=== PATIENT | female | born 1990 | race Two or more races ===

== ENCOUNTER 2018-09-28 17:41 | Emergency (ER) | payer OTHER ==
[~2018-09-28] VITALS: Ht 160 cm; Wt 54.4 kg
--- NOTE | 2018-09-28 17:45 | NUR ---
ED Nurse Note: Pt walked in the ER for chest pain on L upper chest and L arm tingling started 10 mins prior to arrival. No complaint of pain at this moment but " my hand is tingling". AOx4, VSS og. Will cont to monitor.
[2018-09-28 17:47] VITALS: BP 114/65
--- NOTE | 2018-09-28 18:02 | Emergency Room Report ---
History of Present Illness General Chief Complaint: Chest Pain Source: Patient Present Illness HPI The patient presents with episode of chest pain that began 15 minutes before coming in. It occurred both her chest and her lower back. This was initially severe. She soon felt that she couldn't breathe. She also had tingling of her left hand. She's never had pain like this before. Her doctor has seen her for chest pain in the past but told her it was due to lack of sleep. She was doing homework when this began and is under stress at this time. She denies feeling heartburn. The pain is rated 10/10, improving, more pressure. No fevers, chills, cough, sore throat, headache, rashes, joint pain, calf pain, edema. No dysuria. The patient is on her period at this time. Allergies: Coded Allergies: No Known Allergies (Unverified , 09/28/18) Patient History Past Medical History: see triage record Social History: Denies: smoking, alcohol use, drug use Social History Narrative student Last Menstrual Period: 09/26/18 Reviewed Nursing Documentation: PMH: Agreed; PSxH: Agreed Nursing Documentation-PMH Past Medical History: No Stated History Review of Systems All Other Systems: negative except mentioned in HPI Physical Exam Vital Signs Date Time Temp Pulse Resp B/P (MAP) Pulse Ox O2 Delivery O2 Flow Rate FiO2 09/28/18 17:45 97.9 80 18 117/69 95 Room Air Sp02 EP Interpretation: reviewed, abnormal - interpreted as slightly low by me General Appearance: well appearing, no apparent distress, GCS 15, thin Head: normocephalic, atraumatic Eyes: bilateral eye normal inspection, bilateral eye PERRL, bilateral eye EOMI ENT: moist mucus membranes Neck: supple Respiratory: chest non-tender, lungs clear, normal breath sounds Cardiovascular #1: regular rate, rhythm, no edema Cardiovascular #2: 2+ radial (R) Gastrointestinal: normal inspection, normal bowel sounds, non tender, no mass, non-distended Genitourinary: no CVA tenderness Musculoskeletal: back normal, gait/station normal, normal range of motion, no calf tenderness Neurologic: alert, oriented x3, grossly normal Psychiatric: anxious Skin: normal inspection, warm/dry Medical Decision Making Diagnostic Impression: Primary Impression: Chest pain Qualified Codes: R07.9 - Chest pain, unspecified Additional Impressions: UTI (urinary tract infection) Qualified Codes: N30.00 - Acute cystitis without hematuria Stress ER Course Presents with chest pain and difficulty breathing. Differential includes esophageal spasm, acute myocardial infarction, hyperventilation, reflux esophagitis, costochondritis, pulmonary embolus amongst others. Based on her exam pulmonary embolus is less likely. Evaluation will be with chest x-ray, EKG and labs. The patient retreated with Pepcid and Tylenol and reevaluated. She is placed on a court monitor. EKG without injury. CXR clear. Labs unremarkable. Pyuria with blood from menses. Patient improved with treatment and pain free. Discussed findings and need for follow up. Decision to place on antibiotics for pyuria. Patient stable for outpatient observation and treatment. Laboratory Tests Test 09/28/18 18:05 White Blood Count 6.2 K/UL (4.8-10.8) Red Blood Count 4.40 M/UL (4.20-5.40) Hemoglobin 13.4 G/DL (12.0-16.0) Hematocrit 39.7 % (37.0-47.0) Mean Corpuscular Volume 90 FL (80-99) Mean Corpuscular Hemoglobin 30.5 PG (27.0-31.0) Mean Corpuscular Hemoglobin Concent 33.8 G/DL (32.0-36.0) Red Cell Distribution Width 11.6 % (11.6-14.8) Platelet Count 205 K/UL (150-450) Mean Platelet Volume 8.2 FL (6.5-10.1) Neutrophils (%) (Auto) 64.8 % (45.0-75.0) Lymphocytes (%) (Auto) 27.2 % (20.0-45.0) Monocytes (%) (Auto) 5.9 % (1.0-10.0) Eosinophils (%) (Auto) 0.8 % (0.0-3.0) Basophils (%) (Auto) 1.3 % (0.0-2.0) Urine Color Pale yellow Urine Appearance Slightly cloudy Urine pH 5 (4.5-8.0) Urine Specific [place] 1.020 (1.005-1.035) Urine Protein Negative (NEGATIVE) Urine Glucose (UA) Negative (NEGATIVE) Urine Ketones Negative (NEGATIVE) Urine Blood 5+ (NEGATIVE) H Urine Nitrite Negative (NEGATIVE) Urine Bilirubin Negative (NEGATIVE) Urine Urobilinogen Normal MG/DL (0.0-1.0) Urine Leukocyte Esterase 1+ (NEGATIVE) H Urine RBC 20-30 /HPF (0 - 2) H Urine WBC 5-10 /HPF (0 - 2) H Urine Squamous Epithelial Cells Moderate /LPF (NONE/OCC) H Urine Bacteria Few /HPF (NONE) Urine HCG, Qualitative Negative (NEGATIVE) Sodium Level 137 MMOL/L (136-145) Potassium Level 3.4 MMOL/L (3.5-5.1) L Chloride Level 104 MMOL/L (98-107) Carbon Dioxide Level 24 MMOL/L (21-32) Anion Gap 9 mmol/L (5-15) Blood Urea Nitrogen 11 mg/dL (7-18) Creatinine 0.7 MG/DL (0.55-1.30) Estimate Glomerular Filtration Rate > 60 mL/min (>60) Glucose Level 96 MG/DL (74-106) Calcium Level 8.3 MG/DL (8.5-10.1) L Total Bilirubin 0.2 MG/DL (0.2-1.0) Aspartate Amino Transferase (AST) 21 U/L (15-37) Alanine Aminotransferase (ALT) 14 U/L (12-78) Alkaline Phosphatase 47 U/L (46-116) Total Creatine Kinase 221 U/L (26-308) Total Protein 7.0 G/DL (6.4-8.2) Albumin 3.7 G/DL (3.4-5.0) Globulin 3.3 g/dL Albumin/Globulin Ratio 1.1 (1.0-2.7) Urine Opiates Screen Negative (NEGATIVE) Urine Barbiturates Screen Negative (NEGATIVE) Phencyclidine (PCP) Screen Negative (NEGATIVE) Urine Amphetamines Screen Negative (NEGATIVE) Urine Benzodiazepines Screen Negative (NEGATIVE) Urine Cocaine Screen Negative (NEGATIVE) Urine Marijuana (THC) Screen Negative (NEGATIVE) EKG Diagnostic Results Rate: normal Rhythm: NSR ST Segments: no acute changes Rhythm Strip Diag. Results EP Interpretation: yes Rhythm: NSR, no PVC's, no ectopy Chest X-Ray Diagnostic Results Chest X-Ray Diagnostic Results : Chest X-Ray Ordered: Yes # of Views/Limited/Complete: 1 View Indication: Chest Pain Interpretation: no consolidation, no effusion, no pneumothorax Impression: No acute disease Electronically Signed by: Electronically signed by Perfecto Mott MD Last Vital Signs Date Time Temp Pulse Resp B/P (MAP) Pulse Ox O2 Delivery O2 Flow Rate FiO2 09/28/18 19:33 97.8 65 20 109/62 100 Room Air 65 Status: improved Disposition: HOME, SELF-CARE Condition: Improved Scripts Nitrofurantoin Monohyd/M-Cryst* (MACROBID 100 MG*) 100 Mg Capsule 100 MG ORAL EVERY 12 HOURS, #14 CAP Prov: Perfecto Mott MD 09/28/18 Acetaminophen (Tylenol) 325 Mg Tablet 650 MG ORAL Q6H PRN for Prn Pain/Headache/Temp > 101, #20 TAB 0 Refills Prov: Perfecto Mott MD 09/28/18 Famotidine (PEPCID AC) 20 Mg Tablet 20 MG PO DAILY, #20 TAB Prov: Perfecto Mott MD 09/28/18 Perfecto Mott MD Sep 28, 2018 18:02
[2018-09-28 18:23] LABS: APPEARANCE,URINE SLIGHTLY CLOUDY; BILIRUBIN, URINE NEGATIVE (NEGATIVE); COLOR,URINE PALE YELLOW; GLUCOSE, URINE (UA) NEGATIVE (NEGATIVE); KETONES,URINE NEGATIVE (NEGATIVE); LEUKOCYTE ESTERASE ,URINE 1+ (NEGATIVE); NITRITE,URINE NEGATIVE (NEGATIVE); PH,URINE 5 (4.5-8.0); PROTEIN,URINE NEGATIVE (NEGATIVE); UROBILINOGEN,URINE NORMAL MG/DL (0.0-1.0)
[2018-09-28 18:26] LABS: BASOPHILS % (AUTO) 1.3 % (0.0-2.0); EOSINOPHILS % (AUTO) 0.8 % (0.0-3.0); HEMATOCRIT 39.7 % (37.0-47.0); HEMOGLOBIN 13.4 G/DL (12.0-16.0); LYMPHOCYTES % (AUTO) 27.2 % (20.0-45.0); MEAN CORPUSCULAR VOLUME 90 FL (80-99); MONOCYTES % (AUTO) 5.9 % (1.0-10.0); NEUTROPHILS % (AUTO) 64.8 % (45.0-75.0); PLATELET COUNT 205 K/UL (150-450); RED CELL DISTRIBUTION WIDTH 11.6 % (11.6-14.8); WHITE BLOOD COUNT 6.2 K/UL (4.8-10.8)
[2018-09-28 18:34] LABS: ANION GAP 9 mmol/L (5-15); BLOOD UREA NITROGEN 11 mg/dL (7-18); CALCIUM 8.3 MG/DL (8.5-10.1); CARBON DIOXIDE 24 MMOL/L (21-32); CHLORIDE 104 MMOL/L (98-107); CREATININE 0.7 MG/DL (0.55-1.30); POTASSIUM 3.4 MMOL/L (3.5-5.1); SODIUM 137 MMOL/L (136-145)
[2018-09-28 18:40] LABS: ALANINE AMINOTRANSFERASE 14 U/L (12-78); ALBUMIN 3.7 G/DL (3.4-5.0); ALBUMIN/GLOBULIN RATIO 1.1 (1.0-2.7); ALKALINE PHOSPHATASE 47 U/L (46-116); ASPARTATE AMINO TRANSFERASE 21 U/L (15-37); BILIRUBIN,TOTAL 0.2 MG/DL (0.2-1.0); CREATINE KINASE 221 U/L (26-308)
--- NOTE | 2018-09-28 19:15 | NUR ---
HAND-OFF: Report received from Christianne SEPULVEDA.
[2018-09-28] MEDS ORDERED: PEPCID AC20 M2 PO (19:22)
[2018-09-28] MEDS ORDERED: TYLENOL325 MG ORAL (19:22)
[2018-09-28] MEDS ORDERED: NITROFURANTOIN100 M2 ORAL (19:22)
--- NOTE | 2018-09-28 19:25 | NUR ---
ED Nurse Note: Patient cleared for discharge by Pantera Callejas. Patient is alert and oriented x4, ambulatory with steady gait, no s/s of acute distress. IV removed, ID band removed. Patient departed with all belongings accompanied a friend.
[2018-09-28 19:33] VITALS: BP 109/62
--- NOTE | 2018-09-29 14:18 | Diagnostic Imaging Report ---
Indication: Chest pain Comparison: None A single view chest radiograph was obtained. Findings: Cardiomediastinal appearance is within normal limits for age. The lungs are clear. Pulmonary vascularity is appropriate. The diaphragmatic contour is smooth and costophrenic angles are sharp. No pleural effusions are identified. The bones are unremarkable. Impression: No acute findings
== END 2018-09-28 19:36 | disposition home or self-care (01) ==
LOC: EMR 18:00
DX: R07.9 Chest pain, unspecified (principal); N30.00 Acute cystitis without hematuria; F43.9 Reaction to severe stress, unspecified; R06.00 Dyspnea, unspecified
CPT/HCPCS: 36415; 71045; 80053; 80307; 81003; 81025; 82550; 85025; 93005; 96374; 99284; S0028

== ENCOUNTER 2019-04-19 16:00 | Emergency (ER) | payer OTHER ==
[~2019-04-19] VITALS: Ht 160 cm; Wt 56.7 kg
[~2019-04-19 16:00] MED LIST: NITROFURANTOIN100 M2 ORAL; PEPCID AC20 M2 PO; TYLENOL325 MG ORAL
[2019-04-19] MEDS ORDERED: NKM (16:05)
--- NOTE | 2019-04-19 16:11 | NUR ---
ED Nurse Note: Pt came in from home due to medial abdominal pain with n/v/d since Saturday04/17/19. Last vomiting on Saturday. Pt had a bowel movement this morning, reported loose stool. Pain burning like 8/10 og. AOx4, VSS at this time. Will cont to monitor.
[2019-04-19] MEDS ORDERED: Lidocaine 2% Visc 15ml soln ORAL ONE (16:15)
[2019-04-19] MEDS ORDERED: Mylanta II UD 30ml ORAL ONE (16:15)
[2019-04-19] MEDS ORDERED: Dicyclomine HCl 10mg/5ml oral soln ORAL ONE (16:15)
[2019-04-19 16:36] VITALS: BP 114/69
--- NOTE | 2019-04-19 16:45 | Emergency Room Report ---
History of Present Illness General Chief Complaint: Abdominal Pain Source: Patient Present Illness HPI Disclaimer: Please note that this report is being documented using DRAGON technology. This can lead to erroneous entry secondary to incorrect interpretation by the dictating instrument. HPI: 28-year-old otherwise healthy female presents for evaluation of abdominal pain. Symptoms began 3 days ago with loose stools progressing to full diarrhea. Denies melena or hematochezia. Yesterday she has noticed some upper abdominal burning sensation particularly with eating and with drinking. Vomited several times yesterday and today. Denies hematemesis. Notes persistent nausea. Denies any pain in the left upper or right upper quadrants. Notes some pain in the right lower quadrant. Denies dysuria, hematuria, vaginal bleeding, vaginal discharge. LMP was 2 weeks ago. Denies the possibility of . No prior abdominal surgeries. PMH: Denies PSH: Denies Allergies: Denies Social Hx: Denies drug or alcohol abuse Allergies: Coded Allergies: No Known Allergies (Unverified , 09/28/18) Patient History Last Menstrual Period: 04/04/19 Nursing Documentation-PMH Past Medical History: No Stated History Review of Systems All Other Systems: negative except mentioned in HPI Physical Exam Vital Signs Date Time Temp Pulse Resp B/P (MAP) Pulse Ox O2 Delivery O2 Flow Rate FiO2 04/19/19 16:04 98.1 62 18 112/72 (85) 99 Room Air General: Awake and alert, appears uncomfortable HEENT: NC/AT. EOMI. Neck: Supple, trachea midline Chest Wall: No tenderness, no deformity Cardiovascular: RRR. S1 and S2 normal. No murmur appreciated Resp: Normal work of breathing. No cough, wheezing or crackles appreciated Abdomen: Abdomen is soft, nondistended. Tenderness in the epigastrium and in the right lower quadrant with deep palpation. No rebound. Skin: Intact. No abrasions, laceration or rash over the exposed skin MSK: Normal tone and bulk. Moving all extremities. No obvious deformity. Neuro: Awake and alert. Mentating appropriately. Medical Decision Making Diagnostic Impression: Primary Impression: Diarrhea Additional Impressions: Dyspepsia Vomiting ER Course 28-year-old female presents for evaluation of abdominal pain, vomiting and diarrhea. Differential includes was not limited to gastritis, gastroneuritis, cholecystitis, biliary colic, pancreatitis, appendicitis, ovarian cyst, uterine urinary tract infection, pyelonephritis. We will start broad metabolic and infectious work-up, give IV fluids, antiemetics, Pepcid and GI cocktail. Can progress imaging as needed. Laboratory Tests Test 04/19/19 16:30 04/19/19 16:36 Urine Color Pale yellow Urine Appearance Clear Urine pH 8 (4.5-8.0) Urine Specific [place] 1.010 (1.005-1.035) Urine Protein 1+ (NEGATIVE) H Urine Glucose (UA) Negative (NEGATIVE) Urine Ketones 2+ (NEGATIVE) H Urine Blood Negative (NEGATIVE) Urine Nitrite Negative (NEGATIVE) Urine Bilirubin Negative (NEGATIVE) Urine Urobilinogen Normal MG/DL (0.0-1.0) Urine Leukocyte Esterase 1+ (NEGATIVE) H Urine RBC 0-2 /HPF (0 - 2) Urine WBC 2-4 /HPF (0 - 2) Urine Squamous Epithelial Cells Few /LPF (NONE/OCC) Urine Bacteria Few /HPF (NONE) Urine HCG, Qualitative Negative (NEGATIVE) White Blood Count 5.9 K/UL (4.8-10.8) Red Blood Count 4.52 M/UL (4.20-5.40) Hemoglobin 13.5 G/DL (12.0-16.0) Hematocrit 37.9 % (37.0-47.0) Mean Corpuscular Volume 84 FL (80-99) Mean Corpuscular Hemoglobin 29.8 PG (27.0-31.0) Mean Corpuscular Hemoglobin Concent 35.6 G/DL (32.0-36.0) Red Cell Distribution Width 11.1 % (11.6-14.8) L Platelet Count 248 K/UL (150-450) Mean Platelet Volume 7.7 FL (6.5-10.1) Neutrophils (%) (Auto) 62.1 % (45.0-75.0) Lymphocytes (%) (Auto) 27.8 % (20.0-45.0) Monocytes (%) (Auto) 8.4 % (1.0-10.0) Eosinophils (%) (Auto) 0.7 % (0.0-3.0) Basophils (%) (Auto) 1.0 % (0.0-2.0) Sodium Level 142 MMOL/L (136-145) Potassium Level 4.1 MMOL/L (3.5-5.1) Chloride Level 105 MMOL/L (98-107) Carbon Dioxide Level 28 MMOL/L (21-32) Anion Gap 9 mmol/L (5-15) Blood Urea Nitrogen 8 mg/dL (7-18) Creatinine 0.6 MG/DL (0.55-1.30) Estimate Glomerular Filtration Rate > 60 mL/min (>60) Glucose Level 97 MG/DL (74-106) Calcium Level 8.9 MG/DL (8.5-10.1) Total Bilirubin 0.3 MG/DL (0.2-1.0) Aspartate Amino Transferase (AST) 23 U/L (15-37) Alanine Aminotransferase (ALT) 17 U/L (12-78) Alkaline Phosphatase 56 U/L (46-116) Total Protein 7.5 G/DL (6.4-8.2) Albumin 4.0 G/DL (3.4-5.0) Globulin 3.5 g/dL Albumin/Globulin Ratio 1.1 (1.0-2.7) Lipase 155 U/L (73-393) Reevaluation Time: 18:27 Last Vital Signs Date Time Temp Pulse Resp B/P (MAP) Pulse Ox O2 Delivery O2 Flow Rate FiO2 04/19/19 16:36 98.1 62 18 114/69 100 Room Air Status: improved Reevaluation Impression Patient is significantly improved and states her abdominal pain is 2/10 currently. Still describes it as epigastric burning. Labs have returned largely within normal limits. No significant white count, normal hemoglobin, normal electrolytes, renal function unremarkable with creatinine 0.6. LFTs and alkaline phosphatase are within normal limits as is lipase. Urine does not show any evidence of acute infection. Does not appear grossly infected. Likely , this is a viral syndrome that should resolve in the next few days. The patient will be discharged on famotidine, Zofran and Maalox for symptom medic relief. She was counseled on adequate fluid intake to replace losses and the need to follow-up with her PMD. We discussed reasons to return to the emergency department as well and she understands and agrees with this treatment plan. Disposition: HOME, SELF-CARE Condition: Improved Scripts Mag Hydrox/Al Hydrox/Simeth (MAALOX MAXIMUM STRENGTH SUSP) 355 Ml Oral.susp 355 ML PO TID for 5 Days, ML Prov: Kan Morataya MD 04/19/19 Ondansetron Odt* (ZOFRAN ODT*) 4 Mg Tab.rapdis 4 MG BC EVERY 6 HOURS PRN for Nausea & Vomiting, #20 TAB 0 Refills Prov: Kan Morataya MD 04/19/19 Famotidine (FAMOTIDINE) 20 Mg Tablet 20 MG ORAL DAILY, #30 TAB 0 Refills Prov: Kan Morataya MD 04/19/19 Kan Morataya MD Apr 19, 2019 16:45
[2019-04-19 16:46] LABS: APPEARANCE,URINE CLEAR; BILIRUBIN, URINE NEGATIVE (NEGATIVE); COLOR,URINE PALE YELLOW; GLUCOSE, URINE (UA) NEGATIVE (NEGATIVE); KETONES,URINE 2+ (NEGATIVE); LEUKOCYTE ESTERASE ,URINE 1+ (NEGATIVE); NITRITE,URINE NEGATIVE (NEGATIVE); PH,URINE 8 (4.5-8.0); PROTEIN,URINE 1+ (NEGATIVE); UROBILINOGEN,URINE NORMAL MG/DL (0.0-1.0)
[2019-04-19 16:54] LABS: ANION GAP 9 mmol/L (5-15); BLOOD UREA NITROGEN 8 mg/dL (7-18); CALCIUM 8.9 MG/DL (8.5-10.1); CARBON DIOXIDE 28 MMOL/L (21-32); CHLORIDE 105 MMOL/L (98-107); CREATININE 0.6 MG/DL (0.55-1.30); POTASSIUM 4.1 MMOL/L (3.5-5.1); SODIUM 142 MMOL/L (136-145)
[2019-04-19 16:56] LABS: EOSINOPHILS % (AUTO) 0.7 % (0.0-3.0); HEMATOCRIT 37.9 % (37.0-47.0); HEMOGLOBIN 13.5 G/DL (12.0-16.0); LYMPHOCYTES % (AUTO) 27.8 % (20.0-45.0); MEAN CORPUSCULAR VOLUME 84 FL (80-99); MONOCYTES % (AUTO) 8.4 % (1.0-10.0); NEUTROPHILS % (AUTO) 62.1 % (45.0-75.0); PLATELET COUNT 248 K/UL (150-450); RED BLOOD COUNT 4.52 M/UL (4.20-5.40); RED CELL DISTRIBUTION WIDTH 11.1 % (11.6-14.8); WHITE BLOOD COUNT 5.9 K/UL (4.8-10.8)
[2019-04-19 16:58] LABS: ALANINE AMINOTRANSFERASE 17 U/L (12-78); ALBUMIN/GLOBULIN RATIO 1.1 (1.0-2.7); ALKALINE PHOSPHATASE 56 U/L (46-116); ASPARTATE AMINO TRANSFERASE 23 U/L (15-37); BILIRUBIN,TOTAL 0.3 MG/DL (0.2-1.0)
[2019-04-19] MEDS ORDERED: FAMOTIDINE20 MG ORAL (18:25)
[2019-04-19] MEDS ORDERED: ONDANSETRON ODT4 MG BC (18:25)
[2019-04-19] MEDS ORDERED: MAALOX MAXIMUM355 M1 PO (18:25)
[2019-04-19 18:29] VITALS: BP 118/71
--- NOTE | 2019-04-19 18:29 | NUR ---
ER DISCHARGE NOTE: Patient is cleared to be discharged per ERMD, pt is aox4, on room air, with stable vital signs. pt was given dc and prescription instructions, pt was able to verbalize understanding, pt id band and iv site removed without complications. pt is able to ambulate with steady gait. pt took all belongings.
== END 2019-04-19 18:29 | disposition home or self-care (01) ==
LOC: EMR 16:40
DX: R19.7 Diarrhea, unspecified (principal); R11.10 Vomiting, unspecified; R10.13 Epigastric pain
CPT/HCPCS: 36415; 80053; 81003; 81025; 83690; 85025; 96361; 96374; 96375; J2405; S0028; Z7502; 99284